=== PATIENT | female | born 1940 | race Hispanic/Latino ===

== ENCOUNTER 2023-01-06 08:05 | Inpatient (IN) | payer MEDICARE, OTHER ==
[~2023-01-06] VITALS: Ht 162.6 cm; Wt 71.2 kg
[~2023-01-06 08:05] MED LIST: ACTOS30 MG PO; CITALOPRAM HBR20 MG PO; FOLIC ACID PO; GLIPIZIDE10 MG; LOVASTATIN40 MG; MELOXICAM7.5 MG PO; METFORMIN HCL500 MG PO; OMEPRAZOLE MAGN20 MG PO; OMEPRAZOLE20 M1 PO; OMEPRAZOLE40 MG; VIT B 12 PO; VIT D PO
[2023-01-06 08:23] LABS: BASOPHILS % 0.4 % (0.0-1.0); EOSINOPHILS # (AUTO) 0.1 (0.0-0.4); EOSINOPHILS % 1.1 % (0.0-6.0); HEMATOCRIT 39.3 % (34.2-44.1); HEMOGLOBIN 12.7 g/dL (12.0-16.0); LYMPHOCYTES # (AUTO) 1.5 (1.0-3.2); LYMPHOCYTES % 15.9 % (18.0-39.1); MEAN CORPUSCULAR HEMOGLOBIN 27.9 pg (28-32); MEAN CORPUSCULAR HGB CONC 32.3 g/dL (31-35); MEAN CORPUSCULAR VOLUME 86.4 fL (81-99); MONOCYTES # (AUTO) 0.5 (0.2-0.8); MONOCYTES % 5.7 % (4.4-11.3); NEUTROPHILS # (AUTO) 7.1 (2.1-6.9); NEUTROPHILS % 76.7 % (38.7-80.0); PLATELET COUNT 222 x10e3/uL (140-360); RED BLOOD COUNT 4.55 x10e6/uL (3.6-5.1); RED CELL DISTRIBUTION WIDTH 12.6 % (11.7-14.4)
[2023-01-06 08:43] LABS: ANION GAP 14.6 mmol/L (8-16); BLOOD UREA NITROGEN 20 mg/dL (7-26); BUN/CREATININE RATIO 19 (6-25); CALCIUM 9.7 mg/dL (8.4-10.2); CARBON DIOXIDE 22 mmol/L (22-29); CHLORIDE 105 mmol/L (98-107); CREATINE KINASE 178 IU/L (29-168); CREATININE, SERUM 1.03 mg/dL (0.57-1.11); GLUCOSE 173 mg/dL (74-118); POTASSIUM 4.6 mmol/L (3.5-5.1); SODIUM 137 mmol/L (136-145)
[2023-01-06] MEDS ORDERED: SODIUM CHLORIDE FLUSH 10 ML SYR INJ PRN (11:00)
[2023-01-06 11:11] VITALS: PULSE 80; RESP 20; O2SAT 95
[2023-01-06 14:28] VITALS: BP 122/80; PULSE 67; RESP 18; TEMP 98; O2SAT 100
[2023-01-06] MEDS ORDERED: SODIUM CHLORIDE 0.9% 1000ML 1,000 ML IV SCH (17:15)
[2023-01-06] MEDS ORDERED: DEXTROSE 50% SYRINGE 50 ML IV PRN (17:15)
[2023-01-06 17:18] LABS: CREATINE KINASE 215 IU/L (29-168)
[2023-01-06 18:01] VITALS: BP 135/93; PULSE 96; RESP 16; TEMP 98.1; O2SAT 96
[2023-01-06 18:54] VITALS: PULSE 82; RESP 18; O2SAT 96
[2023-01-06 20:00] VITALS: BP 148/65; PULSE 65; RESP 18; TEMP 97.9; O2SAT 99
[2023-01-06] MEDS ORDERED: MELATONIN 3 MG TAB PO PRN (20:30)
[2023-01-06] MEDS: ENOXAPARIN INJ 80 MG/0.8 ML SYR SC SCH (21:01)
[2023-01-07] VITALS (7 sets, daily range): BP systolic 116–146; BP diastolic 66–89; PULSE 75–87; RESP 16–22; TEMP 97.9–98.5; O2SAT 97–99
[2023-01-07 07:00] LABS: BASOPHILS % 0.6 % (0.0-1.0); EOSINOPHILS # (AUTO) 0.1 (0.0-0.4); EOSINOPHILS % 1.3 % (0.0-6.0); HEMATOCRIT 38.2 % (34.2-44.1); HEMOGLOBIN 11.9 g/dL (12.0-16.0); LYMPHOCYTES # (AUTO) 1.6 (1.0-3.2); LYMPHOCYTES % 22.8 % (18.0-39.1); MEAN CORPUSCULAR HEMOGLOBIN 28.1 pg (28-32); MEAN CORPUSCULAR HGB CONC 31.2 g/dL (31-35); MEAN CORPUSCULAR VOLUME 90.1 fL (81-99); MONOCYTES # (AUTO) 0.4 (0.2-0.8); MONOCYTES % 6.2 % (4.4-11.3); NEUTROPHILS # (AUTO) 4.7 (2.1-6.9); NEUTROPHILS % 68.8 % (38.7-80.0); PLATELET COUNT 167 x10e3/uL (140-360); RED BLOOD COUNT 4.24 x10e6/uL (3.6-5.1); RED CELL DISTRIBUTION WIDTH 12.7 % (11.7-14.4)
[2023-01-07 07:25] LABS: CHOL/HDL RATIO 2.7 (3.0-3.6)
[2023-01-07 07:26] LABS: ANION GAP 13.4 mmol/L (8-16); CREATININE, SERUM 0.82 mg/dL (0.57-1.11); POTASSIUM 4.4 mmol/L (3.5-5.1)
[2023-01-07 07:27] LABS: ALBUMIN 2.8 g/dL (3.5-5.0); ALBUMIN/GLOBULIN RATIO 0.8 (0.8-2.0); CALCIUM 9.1 mg/dL (8.4-10.2); MAGNESIUM 1.6 MG/DL (1.3-2.1)
[2023-01-07] MEDS: METOPROLOL SUCCINATE 50 MG TAB XL PO SCH (09:00)
[2023-01-07] MEDS: ENOXAPARIN INJ 80 MG/0.8 ML SYR SC SCH ×2 (09:00→22:17)
[2023-01-07] MEDS ORDERED: ACETAMINOPHEN 325 MG TAB PO PRN (11:00)
[2023-01-07] MEDS ORDERED: ACETAMIN/BUTALBITAL/CAFFEINE TAB PO PRN (11:00)
[2023-01-07 15:05] LABS: CREATINE KINASE 129 IU/L (29-168)
[2023-01-08] VITALS: BP 152/59; PULSE 90; RESP 18; TEMP 98.3; O2SAT 99
[2023-01-08] MEDS ORDERED: MAGNESIUM SULFATE 2GM/50ML 50 ML IV ONE ×2 (04:59)
[2023-01-08 06:04] LABS: CREATINE KINASE 107 IU/L (29-168)
[2023-01-08 07:23] VITALS: BP 147/69; PULSE 85; RESP 18; TEMP 98.7; O2SAT 98
[2023-01-08] MEDS: METOPROLOL SUCCINATE 50 MG TAB XL PO SCH (08:25)
[2023-01-08] MEDS: ENOXAPARIN INJ 80 MG/0.8 ML SYR SC SCH (08:26)
[2023-01-08 08:41] LABS: CLARITY,URINE TURBID (CLEAR); COLOR,URINE YELLOW (YELLOW); KETONES,URINE 2+ (NEGATIVE); LEUKOCYTE ESTERASE ,URINE SMALL (NEGATIVE); NITRITE,URINE POSITIVE (NEGATIVE); PROTEIN,URINE DIPSTICK NEGATIVE (NEGATIVE); URINE UROBILINOGEN >=8 mg/dL (0.2 - 1)
[2023-01-08 08:45] LABS: RBC,URINE 0-5 /HPF (0-5); WBC,URINE (MAN) >50 /HPF (0-5)
[2023-01-08 08:46] LABS: BACTERIA,URINE MANY /HPF; EPITHELIAL CELLS,URINE FEW /LPF
[2023-01-08 09:30] VITALS: BP 147/69; PULSE 85; RESP 18; TEMP 98.7; O2SAT 98
[2023-01-08 12:00] VITALS: BP 147/59; PULSE 103; RESP 20; TEMP 98.3; O2SAT 98
[2023-01-08] MEDS ORDERED: LOVENOX80 MG/0.8 SC (12:56)
[2023-01-08] MEDS ORDERED: MELATONIN3 MG PO (12:56)
[2023-01-08] MEDS ORDERED: Sodium Chloride Flush INJ (12:56)
[2023-01-08] MEDS ORDERED: Acetamin/Butalbital/Caffeine PO (12:56)
[2023-01-08] MEDS ORDERED: TOPROL XL50 MG PO (12:56)
[2023-01-08] MEDS ORDERED: DEXTROSE 50%-WA50 M1 IV (12:56)
[2023-01-08] MEDS ORDERED: ACETAMINOPHEN325 M1 PO (12:56)
[2023-01-08] MEDS ORDERED: METFORMIN HCL 500 MG TAB PO SCH (17:00)
[2023-01-08] MEDS ORDERED: CITALOPRAM HYDROBROMIDE 20 MG TAB PO SCH (21:00)
[2023-01-08] MEDS ORDERED: SIMVASTATIN 40 MG TAB PO SCH (21:00)
[2023-01-09] MEDS ORDERED: MELOXICAM 7.5 MG TAB PO SCH (09:00)
[2023-01-09] MEDS ORDERED: PANTOPRAZOLE SOD 40 MG TABEC PO SCH (09:00)
[2023-01-09] MEDS ORDERED: FOLIC ACID 1 MG TAB PO SCH (09:00)
[2023-01-09] MEDS ORDERED: CHOLECALCIFEROL 1,000 UNIT TAB PO SCH (09:00)
[2023-01-09] MEDS ORDERED: PIOGLITAZONE HCL 15 MG TAB PO SCH (09:00)
[2023-01-09] MEDS ORDERED: CYANOCOBALAMIN 1,000 MCG TAB PO SCH (09:00)
== END 2023-01-08 14:02 | disposition other institution (70) | DRG 312 ==
LOC: ER 08:09 → ERHOLD 10:59 → MED/SURG 14:00
PROVIDERS: ADMIT Internal Medicine; ATTEND Internal Medicine
DX: R55 Syncope and collapse (principal); S06.2XAA Diffuse traumatic brain injury with loss of consciousness status unknown, initial encounter; I48.19 Other persistent atrial fibrillation; E11.9 Type 2 diabetes mellitus without complications; E78.5 Hyperlipidemia, unspecified; W19.XXXA Unspecified fall, initial encounter; I11.9 Hypertensive heart disease without heart failure; I49.5 Sick sinus syndrome; Z79.84 Long term (current) use of oral hypoglycemic drugs; Z90.49 Acquired absence of other specified parts of digestive tract; Z60.2 Problems related to living alone; Z91.81 History of falling; Z79.4 Long term (current) use of insulin
CPT/HCPCS: 36415; 70450; 71045; 72125; 80048; 80053; 80061; 81001; 82550; 82948; 83735; 84484; 85025; 93005; 93880; 94799; 99284; J1650; J3475; J7030